=== PATIENT | male | born 1955 | race Caucasian/White ===

== ENCOUNTER 2017-11-16 15:25 | Emergency (ER) | payer MEDICARE ==
[2017-11-16] MEDS: LIDOCAINE W/EPINEPHRINE 1% 20ML VIAL SC (16:15)
== END 2017-11-16 17:11 | disposition home or self-care (01) ==
LOC: M ED 15:25
DX: S81.012A Laceration without foreign body, left knee, initial encounter (principal); W29.3XXA Contact with powered garden and outdoor hand tools and machinery, initial encounter; Y92.096 Garden or yard of other non-institutional residence as the place of occurrence of the external cause; E11.9 Type 2 diabetes mellitus without complications; M54.9 Dorsalgia, unspecified; Z79.899 Other long term (current) drug therapy; Z79.4 Long term (current) use of insulin; Z88.8 Allergy status to other drugs, medicaments and biological substances
CPT/HCPCS: 12002

== ENCOUNTER 2021-01-04 13:29 | Emergency (ER) | payer MEDICARE ==
[~2021-01-04] VITALS: Ht 188 cm; Wt 100.9 kg
[~2021-01-04 13:29] MED LIST: GLIP10TA6 PO; INSULANT SC; METF500T13 PO; MORP1TAB20 PO; OMEP40CA4 PO; OXYC1SOL3 PO
[2021-01-04 13:31] VITALS: BP 123/85
[2021-01-04] MEDS ORDERED: XARE10TA PO (13:41)
[2021-01-04] MEDS ORDERED: SIMV10TA21 PO (13:43)
--- NOTE | 2021-01-04 14:10 | REP ---
INDICATION: trauma COMPARISON: None. TECHNIQUE: There are four views. FINDINGS: There is no fracture or dislocation. There is mild. Ostial thickening and calcification of the mid fibula medially and laterally and of the distal tibia medially, likely degenerative or old posttraumatic change. Mineralization is normal. There are no foreign bodies. IMPRESSION: No fracture or dislocation. Mild periosteal thickening and calcification as described. <Electronically signed by Freddie Fitzpatrick > 01/04/21 [id number]
--- NOTE | 2021-01-04 14:12 | REP ---
INDICATION: trauma COMPARISON: None. TECHNIQUE: There are four views. FINDINGS: There is no fracture or dislocation. The mortise is symmetric. There is periosteal calcification of the distal tibia medially, degenerative versus old posttraumatic change. There are no foreign bodies. There are calcaneal plantar and Achilles spurs. IMPRESSION: No fracture or dislocation. Periosteal calcification as described. Calcaneal spurs. <Electronically signed by Freddie Fitzpatrick > 01/04/21 [id number]
== END 2021-01-04 15:49 | disposition home or self-care (01) ==
LOC: M ED 13:29
DX: S93.402A Sprain of unspecified ligament of left ankle, initial encounter (principal); S90.02XA Contusion of left ankle, initial encounter; X58.XXXA Exposure to other specified factors, initial encounter; Y92.099 Unspecified place in other non-institutional residence as the place of occurrence of the external cause; Y93.9 Activity, unspecified; Y99.9 Unspecified external cause status; M25.772 Osteophyte, left ankle; M61.472 Other calcification of muscle, left ankle and foot; E11.9 Type 2 diabetes mellitus without complications; E78.5 Hyperlipidemia, unspecified; Z79.4 Long term (current) use of insulin; Z79.899 Other long term (current) drug therapy; Z88.6 Allergy status to analgesic agent; Z91.040 Latex allergy status

== ENCOUNTER 2021-01-11 10:11 | Emergency (ER) | payer MEDICARE ==
[~2021-01-11] VITALS: Ht 188 cm; Wt 103.3 kg
[~2021-01-11 10:11] MED LIST changes: +SIMV10TA21 PO; +XARE10TA PO
--- NOTE | 2021-01-11 11:54 | REP ---
INDICATION: tree branch to leg, neg xrays, increased pain, bruising. COMPARISON: X-rays 01/04/2021 TECHNIQUE: Thin axial scans with sagittal and coronal reconstructions. FINDINGS: No fracture or dislocation. Ankle mortise is intact. Osteo chondroma posterolateral aspect distal tibia representing incidental finding. IMPRESSION: Osteochondroma posterolateral aspect distal two-view PA no bony injury. <Electronically signed by Ganesh Dodd > 01/11/21 [id number]
[2021-01-11 12:06] VITALS: BP 147/94
--- NOTE | 2021-01-11 15:10 | ED PDOC ---
Post-Departure Follow-Up radiology report faxed to Teresa Garza MD Jan 11, 2021 15:10
== END 2021-01-11 12:13 | disposition home or self-care (01) ==
LOC: M ED 10:11
DX: S90.02XA Contusion of left ankle, initial encounter (principal); D16.32 Benign neoplasm of short bones of left lower limb; W22.8XXA Striking against or struck by other objects, initial encounter; Y92.099 Unspecified place in other non-institutional residence as the place of occurrence of the external cause; Y93.9 Activity, unspecified; Y99.9 Unspecified external cause status; I48.91 Unspecified atrial fibrillation; E11.9 Type 2 diabetes mellitus without complications; E78.5 Hyperlipidemia, unspecified; Z79.01 Long term (current) use of anticoagulants; Z79.4 Long term (current) use of insulin; Z79.899 Other long term (current) drug therapy; Z88.6 Allergy status to analgesic agent; Z91.040 Latex allergy status

== ENCOUNTER 2021-12-10 17:58 | Emergency (ER) | payer MEDICARE ==
[~2021-12-10] VITALS: Ht 188 cm; Wt 95.8 kg
[2021-12-10 19:13] LABS: RSV AMPLIFICATION NEGATIVE (NEGATIVE)
[2021-12-10] MEDS ORDERED: ACETAMINOPHEN 500 MG TAB PO ONE (20:20)
[2021-12-10 20:39] VITALS: BP 104/59; O2SAT 97
== END 2021-12-10 21:04 | disposition home or self-care (01) ==
LOC: M ED 17:58
DX: U07.1 COVID-19 (principal); I48.91 Unspecified atrial fibrillation; E11.9 Type 2 diabetes mellitus without complications; K76.0 Fatty (change of) liver, not elsewhere classified; Z79.4 Long term (current) use of insulin; Z79.899 Other long term (current) drug therapy; Z79.891 Long term (current) use of opiate analgesic; Z88.6 Allergy status to analgesic agent; Z91.040 Latex allergy status

== ENCOUNTER → 2022-10-28 | Day surgery (SDC) | payer MEDICARE, OTHER ==
[~2022-10-28] VITALS: Ht 188 cm; Wt 90.7 kg
[~2022-10-28] MED LIST changes: +ATOR80TA59 PO; +CLOT1CRE71 TOP; +CYCL-707 PO; +JARD1TAB3 PO; +LIDO4CRE4 EX; +MAGN400C PO; +MORP15TASA PO; +NARC1SPR; +NS 1,000 ML IV ONE; +PROP20TA PO; +SEMA1PEN2 SQ; +fentaNYL 100 MCG/2 ML INJECTION As Ordered ONE; +propofoL 200 MG/20 ML VIAL As Ordered ONE
== END | disposition home or self-care (01) ==
LOC: M OPP 06:32
PROVIDERS: ATTEND Internal Medicine Gastroenterology
DX: Z12.11 Encounter for screening for malignant neoplasm of colon (principal); R12 Heartburn; Z53.8 Procedure and treatment not carried out for other reasons

== ENCOUNTER 2022-11-29 09:14 | Emergency (ER) | payer MEDICARE, OTHER ==
[~2022-11-29] VITALS: Ht 188 cm; Wt 93.0 kg
[~2022-11-29 09:14] MED LIST changes: -NS 1,000 ML IV ONE; -fentaNYL 100 MCG/2 ML INJECTION As Ordered ONE; -propofoL 200 MG/20 ML VIAL As Ordered ONE
[2022-11-29 09:16] VITALS: BP 11/73; TEMP 97.3; O2SAT 95
[2022-11-29 10:48] LABS: RSV AMPLIFICATION NEGATIVE (NEGATIVE)
== END 2022-11-29 11:07 | disposition home or self-care (01) ==
LOC: M ED 09:14
DX: R05.9 Cough, unspecified (principal); R09.81 Nasal congestion; Z79.4 Long term (current) use of insulin; Z79.899 Other long term (current) drug therapy; Z88.6 Allergy status to analgesic agent; Z91.040 Latex allergy status

== ENCOUNTER 2023-03-03 05:54 | Emergency (ER) | payer MEDICARE ==
[~2023-03-03] VITALS: Ht 188 cm; Wt 93.9 kg
[2023-03-03 06:56] LABS: BASO % 0.2 % (0.0-1.0); HEMATOCRIT 40.3 % (42.0-52.0); HEMOGLOBIN 14.5 g/dl (13.5-17.5); LYMPH # 0.5 10^3/uL (1.5-5.0); LYMPH % 11.3 % (24.0-44.0); MEAN CORPUSCULAR VOLUME 94.4 fl (80.0-96.0); MONO # 0.6 10^3/uL (0.0-0.8); MONO % 12.8 % (2.0-8.0); NEUTROPHILS # 3.5 10^3/uL (1.5-8.5); NEUTROPHILS % 75.3 % (36.0-66.0); RED BLOOD COUNT 4.27 10^6/uL (4.30-6.10); WHITE BLOOD COUNT 4.6 10^3/uL (4.0-10.0)
[2023-03-03 07:14] LABS: PLATELET COUNT, AUTOMATED 86 10^3/uL (150-450)
[2023-03-03 07:29] LABS: BLOOD UREA NITROGEN 24 MG/DL (9-23); CALCIUM LEVEL 8.3 MG/DL (8.3-10.6); CARBON DIOXIDE LEVEL 26 MMOL/L (20-31); CHLORIDE LEVEL 107 MMOL/L (98-107); CREATININE FOR GFR 0.78 MG/DL (0.70-1.30); GLOMERULAR FILTRATION RATE > 60.0 (>49); GLUCOSE, FASTING 201 MG/DL (74-106); POTASSIUM SERUM 4.3 MMOL/L (3.5-5.1); SODIUM LEVEL 139 MMOL/L (136-145)
[2023-03-03 07:50] LABS: ERYTHROCYTE SEDIMENTATION RATE 7 mm/hr (0-20)
[2023-03-03] MEDS ORDERED: CEPHALEXIN 500 MG CAP PO ONE (07:55)
[2023-03-03] MEDS ORDERED: CEPH500C PO (07:56)
[2023-03-03 08:25] VITALS: BP 138/71; TEMP 98.7; O2SAT 99
== END 2023-03-03 08:22 | disposition home or self-care (01) ==
LOC: M ED 07:00
DX: S92.511A Displaced fracture of proximal phalanx of right lesser toe(s), initial encounter for closed fracture (principal); W23.0XXA Caught, crushed, jammed, or pinched between moving objects, initial encounter; Y92.009 Unspecified place in unspecified non-institutional (private) residence as the place of occurrence of the external cause; E11.9 Type 2 diabetes mellitus without complications; I48.91 Unspecified atrial fibrillation; Z79.4 Long term (current) use of insulin; Z79.899 Other long term (current) drug therapy; Z88.6 Allergy status to analgesic agent; Z91.040 Latex allergy status

== ENCOUNTER 2023-11-04 12:18 | Emergency (ER) | payer MEDICARE ==
[~2023-11-04] VITALS: Ht 188 cm; Wt 91.3 kg
[~2023-11-04 12:18] MED LIST changes: +CEPH500C PO
[2023-11-04 17:08] VITALS: BP 118/74; TEMP 97.4; O2SAT 96
== END 2023-11-04 18:47 | disposition home or self-care (01) ==
LOC: M ED 12:18
DX: M19.041 Primary osteoarthritis, right hand (principal); M19.011 Primary osteoarthritis, right shoulder; E11.9 Type 2 diabetes mellitus without complications; E78.5 Hyperlipidemia, unspecified; K76.9 Liver disease, unspecified; K59.00 Constipation, unspecified; Z86.79 Personal history of other diseases of the circulatory system; Z88.6 Allergy status to analgesic agent; Z91.040 Latex allergy status; Z79.02 Long term (current) use of antithrombotics/antiplatelets; Z79.4 Long term (current) use of insulin; Z79.899 Other long term (current) drug therapy

== ENCOUNTER → 2023-12-13 | Outpatient (CLI) | payer MEDICARE | LOC: M SOG 11:43 | PROVIDERS: ATTEND Physician Assistant | DX: M79.642 Pain in left hand (principal) ==

== ENCOUNTER → 2024-12-02 | Outpatient (CLI) | payer MEDICARE, OTHER ==
[~2024-12-02] MED LIST changes: +GLIP10TA15 PO; -GLIP10TA6 PO; -LIDO4CRE4 EX; +LIDO5CRE7 EX; +MORP-138 PO; -MORP15TASA PO
== END ==
LOC: M RAD 09:02
PROVIDERS: ATTEND Physician Assistant
DX: M25.511 Pain in right shoulder (principal)